=== PATIENT | female | born 1975 | race Caucasian/White ===

== ENCOUNTER 2019-04-02 09:48 | Emergency (ER) | payer MEDICAID, BC | END 2019-04-02 11:39 | disposition home or self-care (01) | LOC: FTE 09:48 | DX: S99.922A Unspecified injury of left foot, initial encounter (principal); W18.40XA Slipping, tripping and stumbling without falling, unspecified, initial encounter; Y92.9 Unspecified place or not applicable; Z87.891 Personal history of nicotine dependence | CPT/HCPCS: 73630; 73630-LT; 81025; 99283-25 ==